=== PATIENT | male | born 1965 | race Caucasian/White ===

== ENCOUNTER → 2022-02-02 | Outpatient (CLI) | payer OTHER, MEDICARE | LOC: KOH-I 09:24 | DX: M75.102 Unspecified rotator cuff tear or rupture of left shoulder, not specified as traumatic (principal); S43.432A Superior glenoid labrum lesion of left shoulder, initial encounter; M19.012 Primary osteoarthritis, left shoulder | CPT/HCPCS: 73221 ==

== ENCOUNTER → 2022-04-12 | Outpatient (CLI) | payer OTHER, MEDICARE | LOC: LAB 14:44 | DX: M54.16 Radiculopathy, lumbar region (principal) | CPT/HCPCS: 36415; 82565; 84520 ==

== ENCOUNTER → 2022-04-14 | Outpatient (CLI) | payer OTHER, MEDICARE | LOC: EMI 15:01 | DX: M51.16 Intervertebral disc disorders with radiculopathy, lumbar region (principal); M51.37 Other intervertebral disc degeneration, lumbosacral region | CPT/HCPCS: 72158; A9577 ==

== ENCOUNTER → 2022-05-27 | Outpatient (CLI) | payer OTHER, MEDICARE | LOC: LAB 13:48 | DX: M96.1 Postlaminectomy syndrome, not elsewhere classified (principal) | CPT/HCPCS: 36415; 83036; 87081 ==